=== PATIENT | male | born 1945 | race Asian ===

== ENCOUNTER 2020-09-05 12:58 | Emergency (ER) | payer OTHER ==
[2020-09-11 15:54] LABS: PLATELET COUNT 194 K/uL (142-355)
[2020-09-11 15:55] LABS: POTASSIUM 4.4 mmol/L (3.6-5.2)
[2020-09-13] MEDS ORDERED: APIX1TAB PO (09:52)
[2020-09-13] MEDS ORDERED: DOCU100C10 PO (09:52)
[2020-09-13] MEDS ORDERED: ACET-206 PO (09:52)
[2020-09-13] MEDS ORDERED: ENTERIC COATED325 MG PO (09:52)
[2020-09-13] MEDS ORDERED: DIVA250T PO (09:52)
[2020-09-13] MEDS ORDERED: ESCI10TA PO (09:52)
[2020-09-13] MEDS ORDERED: GLIM2TAB PO (09:52)
[2020-09-13] MEDS ORDERED: MAGNSUS68 PO (09:53)
[2020-09-13] MEDS ORDERED: INSUINJ20 SC (09:53)
[2020-09-13] MEDS ORDERED: METO-837 PO (09:53)
[2020-09-13] MEDS ORDERED: METF500T PO (09:53)
[2020-09-13] MEDS ORDERED: SIMV20TA2 PO (09:54)
[2020-09-13] MEDS ORDERED: PARO20TA3 PO (09:54)
[2020-09-13] MEDS ORDERED: TAMS0.4C PO (09:54)
== END 2020-09-05 13:27 | disposition other institution (70) ==
LOC: ED 12:58
PROVIDERS: Emergency Medicine
DX: F22 Delusional disorders (principal); I48.91 Unspecified atrial fibrillation; Z95.0 Presence of cardiac pacemaker; Z89.612 Acquired absence of left leg above knee; Z97.14 Presence of artificial left leg (complete) (partial); Z11.52 Encounter for screening for COVID-19; Z04.6 Encounter for general psychiatric examination, requested by authority
CPT/HCPCS: 80053; 81000; 85027; 87635; 93005; 99283; U0003

== ENCOUNTER 2020-10-15 16:29 | Emergency (ER) | payer OTHER ==
[~2020-10-15] VITALS: Ht 177.8 cm; Wt 80.7 kg
[~2020-10-15 16:29] MED LIST: ACET-206 PO; APIX1TAB PO; DIVA250T PO; DOCU100C10 PO; ENTERIC COATED325 MG PO; ESCI10TA PO; GLIM2TAB PO; INSUINJ20 SC; MAGNSUS68 PO; METF500T PO; METO-837 PO; PARO20TA3 PO; SIMV20TA2 PO; TAMS0.4C PO
[2020-10-15 16:30] VITALS: BP 163/103; TEMP 97.6
[2020-10-15 17:08] LABS: PLATELET COUNT 183 K/uL (142-355)
[2020-10-15 17:20] LABS: POTASSIUM 4.5 mmol/L (3.6-5.2)
[2020-10-16] MEDS ORDERED: TRADJENTA5 M1 PO (00:07)
[2020-10-16] MEDS ORDERED: PRAVACHOL20 MG PO (00:12)
[2020-10-16] MEDS ORDERED: TAMS0.4C PO (00:31)
[2020-10-16] MEDS ORDERED: BAYER ASPIRIN E81 MG PO (14:11)
[2020-10-16] MEDS ORDERED: ELIQUIS5 MG PO (14:14)
== END 2020-10-15 18:24 | disposition still patient (30) ==
LOC: ED 16:29
PROVIDERS: Hospitalist
DX: F03.91 Unspecified dementia, unspecified severity, with behavioral disturbance (principal); Z72.811 Adult antisocial behavior; Z11.52 Encounter for screening for COVID-19; Z04.6 Encounter for general psychiatric examination, requested by authority
CPT/HCPCS: 80053; 80164; 81000; 85027; 87635; 93005; 99283; U0003